=== PATIENT | female | born 1940 | race Caucasian/White ===

== ENCOUNTER 2018-07-11 20:00 | Emergency (ER) | payer MEDICARE ==
[~2018-07-11] VITALS: Ht 152.4 cm; Wt 81.6 kg
[~2018-07-11 20:00] MED LIST: ASPI-1155 PO; ATOR-1 PO; CALC-942 PO; CARV25TA55 PO; CICL34.62 TP; FERR-57 PO; LORA-258 PO; LORA10TA7 PO; MULT-1089 PO; OMEP20CA10 PO
[2018-07-11 20:16] VITALS: BP_SYST 161
[2018-07-12] MEDS ORDERED: HYDROcodone/ACETAMIN 5-325 MG TAB (NORCO/ VICODIN) PO ONE (00:15)
[2018-07-12 00:45] VITALS: BP_SYST 161
== END 2018-07-12 00:45 | disposition home or self-care (01) ==
LOC: SED 20:00
DX: M25.562 Pain in left knee (principal); Z86.79 Personal history of other diseases of the circulatory system; Z85.3 Personal history of malignant neoplasm of breast; Z79.82 Long term (current) use of aspirin; Z79.899 Other long term (current) drug therapy
CPT/HCPCS: 73564; 99283

== ENCOUNTER 2018-09-28 15:02 | Emergency (ER) | payer MEDICARE ==
[~2018-09-28] VITALS: Ht 152.4 cm; Wt 81.6 kg
--- NOTE | 2018-09-28 15:30 | NUR ---
SENT TO WAITING ROOM NO BED IN ER
--- NOTE | 2018-09-28 16:06 | NUR ---
PT AMBULATED TO HALLWAY.
--- NOTE | 2018-09-28 16:07 | NUR ---
APRIL GARCIA EXAMINING PT
--- NOTE | 2018-09-28 16:10 | NUR ---
Pt AAOx4 presents to ED c/o sudden redness to L eye today. PT denies pain. No other injuries/complaints per pt/noted. Will continue to monitor.
--- NOTE | 2018-09-28 16:36 | NUR ---
Patient given written and verbal discharge instructions and verbalizes understanding. ER MD Mcgill discussed with patient the results and treatment provided. Patient in stable condition. ID arm band removed. Rx of Visine Maximum Redness Relief given. Patient educated on pain management and to follow up with PMD. Pain Scale 0. Opportunity for questions provided and answered. Medication side effect fact sheet provided.
[2018-09-28 16:39] VITALS: BP_SYST 142
== END 2018-09-28 16:36 | disposition home or self-care (01) ==
LOC: SED 15:02
DX: H11.32 Conjunctival hemorrhage, left eye (principal); I10 Essential (primary) hypertension; Z85.3 Personal history of malignant neoplasm of breast; Z86.79 Personal history of other diseases of the circulatory system; Z79.82 Long term (current) use of aspirin; Z79.899 Other long term (current) drug therapy
CPT/HCPCS: 99282

== ENCOUNTER 2021-05-01 11:28 | Emergency (ER) | payer MEDICARE, SELFPAY ==
[~2021-05-01 11:28] MED LIST changes: -OMEP20CA10 PO; +OMEP20CA15 PO
--- NOTE | 2021-05-01 11:56 | NUR ---
Pt was brought in via vehicle by son in law. Pt was unresponsive and without pulse. Pt was coded for over 30 minutes utilizing ACLS protocol. Pt recieved a total of 5 epi, 3 bicarb, 1 calicum and amio 300mg, all IVP via the IO access to the right distal tibia. BS was 135 @ 1148. Pt was shocked mulitple times. Pt pronouced at [address] Escalante. Spoke with son in law and daughter. Able to come to bedside and spend time with deceadent.
--- NOTE | 2021-05-01 13:38 | NUR ---
BACKGROUND CHECK COORDINATOR'S OFFICE. CALLED AND SPOKE TO Issac WELDON TO REPORT . SHE STATED THAT THIS IS NOT A BACKGROUND CHECK COORDINATOR'S CASE.
--- NOTE | 2021-05-01 14:13 | NUR ---
[facility]. [facility] AND SPOKE TO HENRI, REPORTED . SHE STATED THAT BODY MAYBE RELEASED. REFERRAL NUMBER [id number].
== END 2021-05-01 16:07 ==
LOC: SED 11:28
DX: I46.9 Cardiac arrest, cause unspecified (principal); I10 Essential (primary) hypertension; J44.9 Chronic obstructive pulmonary disease, unspecified; J45.909 Unspecified asthma, uncomplicated; E11.9 Type 2 diabetes mellitus without complications; K21.9 Gastro-esophageal reflux disease without esophagitis
CPT/HCPCS: 99285